=== PATIENT | male | born 1970 | race African-American/Black ===

== ENCOUNTER 2016-08-19 21:17 | Emergency (ER) | payer BC ==
[~2016-08-19] VITALS: Ht 172.7 cm; Wt 93.0 kg
--- OUTSIDE RECORDS SUMMARY | 2016-08-19 21:22 | XMS REPORT | Continuity of Care Document ---
Author Author [facility] Organization [facility] Address Unknown Phone Unavailable Allergies Medications Problems Procedures Results Encounters ACCT No. Visit Date/Time Discharge Status Pt. Type Provider Facility Loc./Unit Complaint [id number] 11/29/2013 09:11:00 2013 23:59:59 CLS Outpatient [id number] 08/19/2016 21:18:00 ACT Emergency ELOISA ALCOCER, JORGE ALBERTO [facility] ER NAUSEA
[2016-08-19] MEDS ORDERED: NS IV 1000 ML 1,000 ML IV ONE ×2 (21:41→22:00)
[2016-08-19] MEDS ORDERED: ONDANSETRON 4 MG/2 ML (SDV) Z0FRAN IVP ONE (21:45)
[2016-08-19 22:00] LABS: BASOPHILS % (AUTO) 0 % (0-10); EOSINOPHILS % (AUTO) 0 % (0-10); LYMPHOCYTES # (AUTO) 1.6 X 10^3 (1.0-4.0); LYMPHOCYTES % (AUTO) 26 % (12-44); MEAN CORPUSCULAR HEMOGLOBIN 28 PG (25-34); MEAN CORPUSCULAR HGB CONC 35 G/DL (32-36); MEAN CORPUSCULAR VOLUME 81 FL (80-99); MEAN PLATELET VOLUME 9.9 FL (7.4-10.4); MONOCYTES # (AUTO) 0.2 X 10^3 (0.0-1.0); MONOCYTES % (AUTO) 4 % (0-12); NEUTROPHILS # (AUTO) 4.4 X 10^3 (1.8-7.8); NEUTROPHILS % (AUTO) 70 % (42-75); PLATELET COUNT 251 10^3/uL (130-400); RED BLOOD COUNT 5.56 10^6/uL (4.35-5.85); RED CELL DISTRIBUTION WIDTH 12.6 % (10.0-14.5); WHITE BLOOD COUNT 6.3 10^3/uL (4.3-11.0)
--- NOTE | 2016-08-19 22:06 | ED GI ---
General Chief Complaint: Abdominal/GI Problems Stated Complaint: NAUSEA Nursing Triage Note: c/o vomiting, denies abdomen pain and diarrhea Sepsis Screen: No Definite Risk History of Present Illness Time Seen By Provider: 21:40 Initial Comments patient presents with vomiting since 1300, 6 episodes. Most recent 15 minutes ago. Ate lunch at 1100 and nausea began shortly after that. He has only had sips of water since the vomiting started. he denies abdominal pain. late last week he had some fevers and cough but that has improved Timing/Duration: 4-6 Hours Severity/Quality: Moderate Radiation: No Radiation Activities at Onset: None Modifying Factors: Improves With Lying down, Improves With Resting Associated Symptoms: Denies Symptoms Allergies and Home Medications Allergies Coded Allergies: No Known Drug Allergies (Unverified , 08/19/16) Review of Systems Constitutional: no symptoms reported see HPI EENTM: No Symptoms Reported See HPI Respiratory: No Symptoms Reported See HPI Cardiovascular: No Symptoms Reported Gastrointestinal: See HPIDenies Abdominal Pain, Denies Blood Streaked Stools, Denies Constipated, Denies Diarrhea, Denies Difficulty Swallowing, NauseaDenies Poor Appetite, Vomiting Genitourinary: No Symptoms Reported See HPI Musculoskeletal: no symptoms reported see HPI Skin: no symptoms reported see HPI Psychiatric/Neurological: No Symptoms Reported See HPI Endocrine: No Symptoms Reported See HPI Hematologic/Lymphatic: No Symptoms Reported See HPI All Other Systems Reviewed Negative Unless Noted: Yes Past [id number]-Jqiktc Hx Patient Social History Alcohol Use: Denies Use Recreational Drug Use: No Smoking Status: Never a Smoker Recent Foreign Travel: No Contact w/Someone Who Travel: No Recent Infectious Disease Expo: No Recent Hopitalizations: No Surgeries HX Surgeries: No Respiratory Hx Respiratory Disorders: No Cardiovascular Hx Cardiac Disorders: No Neurological Hx Neurological Disorders: No Reproductive System Hx Reproductive Disorders: No Sexually Transmitted Disease: No Genitourinary Hx Genitourinary Disorders: No Gastrointestinal Hx Gastrointestinal Disorders: No Musculoskeletal Hx Musculoskeletal Disorders: No HEENT HX ENT Disorders: No Cancer Hx Cancer: No Psychosocial Hx Psychiatric Problems: No Integumentary HX Skin/Integumentary Disorder: No Blood Transfusions Hx Blood Disorders: No Reviewed Nursing Assessment Reviewed/Agree w Nursing PMH: Yes Physical Exam Vital Signs VS - Last 72 Hours, by Label 08/19/16 08/19/16 21:39 23:40 Temp 97.5 98.8 Pulse 74 61 Resp 16 18 B/P 100/59 Pulse Ox 97 97 Capillary Refill : Less Than 3 Seconds General Appearance: WD/WN no apparent distress HEENT: PERRL/EOMI normal ENT inspection TMs normal pharynx normal other (oral mucosa pink and moist) Neck: non-tender full range of motion supple normal inspection Respiratory: chest non-tender lungs clear Cardiovascular: normal peripheral pulses regular rate, rhythm no murmur Gastrointestinal: normal bowel sounds non tender softNo guarding, No rebound, No tenderness, No hernia, No mass, No hepatomegaly, No spleenomegaly, other ( negative Rayo or iliopsoas sign) Extremities: normal range of motion non-tender normal inspection no pedal edema no calf tenderness normal capillary refill Back: normal inspection no CVA tenderness no vertebral tenderness Neurologic/Psychiatric: no motor/sensory deficits alert normal mood/affect oriented x 3 Skin: normal color warm/dry Lymphatic: no adenopathy Focused Exam Lactic Acid Level Laboratory Tests Test 08/19/16 21:50 Alanine Aminotransferase (ALT/SGPT) 51U/L (0-55) Albumin 4.0G/DL (3.2-4.5) Alkaline Phosphatase 88U/L (40-136) Amylase Level 76U/L (25-125) Anion Gap 14MMOL/L (5-14) Aspartate Amino Transf (AST/SGOT) 46U/L (5-34) H BUN/Creatinine Ratio 10 Blood Urea Nitrogen 11MG/DL (7-18) Calcium Level 9.4MG/DL (8.5-10.1) Carbon Dioxide Level 21MMOL/L (21-32) Chloride Level 106MMOL/L (98-107) Creatinine 1.12MG/DL (0.60-1.30) Estimat Glomerular Filtration Rate > 60 Glucose Level 118MG/DL (70-105) H Lipase 19U/L (8-78) Magnesium Level 2.1MG/DL (1.8-2.4) Potassium Level 4.2MMOL/L (3.6-5.0) Sodium Level 141MMOL/L (135-145) Total Bilirubin 1.0MG/DL (0.1-1.0) Total Protein 7.6G/DL (6.4-8.2) Progress/Results/Core Measures Results/Orders Lab Results Laboratory Tests Test 08/19/16 21:50 08/19/16 23:05 Range/Units Alanine Aminotransferase (ALT/SGPT) 51 0-55 U/L Albumin 4.0 3.2-4.5 G/DL Alkaline Phosphatase 88 40-136 U/L Amylase Level 76 25-125 U/L Anion Gap 14 5-14 MMOL/L Aspartate Amino Transf (AST/SGOT) 46 H 5-34 U/L BUN/Creatinine Ratio 10 Basophils # (Auto) 0.0 0.0-0.1 10^3/uL Basophils (%) (Auto) 0 0-10 % Blood Urea Nitrogen 11 7-18 MG/DL Calcium Level 9.4 8.5-10.1 MG/DL Carbon Dioxide Level 21 21-32 MMOL/L Chloride Level 106 98-107 MMOL/L Creatinine 1.12 0.60-1.30 MG/DL Eosinophils # (Auto) 0.0 0.0-0.3 10^3/uL Eosinophils (%) (Auto) 0 0-10 % Estimat Glomerular Filtration Rate > 60 Glucose Level 118 H 70-105 MG/DL Hematocrit 45 40-54 % Hemoglobin 15.7 13.3-17.7 G/DL Lipase 19 8-78 U/L Lymphocytes # (Auto) 1.6 1.0-4.0 X 10^3 Lymphocytes (%) (Auto) 26 12-44 % Magnesium Level 2.1 1.8-2.4 MG/DL Mean Corpuscular Hemoglobin 28 25-34 PG Mean Corpuscular Hemoglobin Concent 35 32-36 G/DL Mean Corpuscular Volume 81 80-99 FL Mean Platelet Volume 9.9 7.4-10.4 FL Monocytes # (Auto) 0.2 0.0-1.0 X 10^3 Monocytes (%) (Auto) 4 0-12 % Neutrophils # (Auto) 4.4 1.8-7.8 X 10^3 Neutrophils (%) (Auto) 70 42-75 % Platelet Count 251 130-400 10^3/uL Potassium Level 4.2 3.6-5.0 MMOL/L Red Blood Count 5.56 4.35-5.85 10^6/uL Red Cell Distribution Width 12.6 10.0-14.5 % Sodium Level 141 135-145 MMOL/L Total Bilirubin 1.0 0.1-1.0 MG/DL Total Protein 7.6 6.4-8.2 G/DL White Blood Count 6.3 4.3-11.0 10^3/uL Urine Bacteria NONE /HPF Urine Bilirubin NEGATIVE NEGATIVE Urine Casts NONE /LPF Urine Clarity CLEAR Urine Color YELLOW Urine Crystals NONE /LPF Urine Culture Indicated NO Urine Glucose (UA) NEGATIVE NEGATIVE Urine Ketones NEGATIVE NEGATIVE Urine Leukocyte Esterase NEGATIVE NEGATIVE Urine Mucus NEGATIVE /LPF Urine Nitrite NEGATIVE NEGATIVE Urine Protein 1+ H NEGATIVE Urine RBC NONE /HPF Urine RBC (Auto) NEGATIVE NEGATIVE Urine Specific [place] 1.010 L 1.016-1.022 Urine Squamous Epithelial Cells RARE /HPF Urine Urobilinogen 1 NORMAL MG/DL Urine WBC NONE /HPF Urine pH 8 5-9 My Orders Orders-TERESA ANDERSON Saline Lock/Iv-Start (08/19/16 22:00) Ns Iv 1000 Ml (Sodium Chloride 0.9%) (08/19/16 22:00) Rx-Ondansetron Po (Rx-Zofran Po) (08/19/16 23:30) Medications Given in ED Vital Signs/I&O Vital Sign - Last 12Hours 08/19/16 08/19/16 21:39 23:40 Temp 97.5 98.8 Pulse 74 61 Resp 16 18 B/P 100/59 Pulse Ox 97 97 Blood Pressure Mean: 73 Progress Note : Time: 21:40 Progress Note initial evaluation completed, patient unsure of his normal blood pressure but is currently in the 100/50s will give 2 L of IV fluids and Zofran 4 mg IV. Labs to follow. 2230 patient reports to be feeling much better, denies nausea or vomiting. CBC and CMP essentially normal. B/P remains 100/50s. 2315 patient reports he continues to feel improved, blood pressure is 126/66. No nausea or vomiting taking ice chips. 2 L of normal saline had infused. UA normal. Departure Impression Impression: Primary Impression: Nausea and vomiting Qualified Code: R11.14 - Bilious vomiting Disposition: 01 HOME, SELF-CARE Condition: Improved Departure-Patient Inst. Decision time for Depature: 23:00 Referrals: YAZMIN DEWEY DO (PCP) Primary Care Physician Patient Instructions: Nausea and Vomiting, Adult (DC) Add. Discharge Instructions: All discharge instructions reviewed with patient and/or family. Voiced understanding. Small servings of clear liquids for 6 hours then progress to bland food as tolerated. Use Zofran for nausea/vomiting. return to emergency room if continued nausea and vomiting, worsening symptoms, or new concerns. TERESA ANDERSON Aug 19, 2016 22:06 Intake Total 2000 ml Balance 2000 ml Blood Pressure Mean: 73 Progress Note : Time: 21:40 Progress Note initial evaluation completed, patient unsure of his normal blood pressure but is currently in the 100/50s will give 2 L of IV fluids and Zofran 4 mg IV. Labs to follow. 2230 patient reports to be feeling much better, denies nausea or vomiting. CBC and CMP essentially normal. B/P remains 100/50s. 2315 patient reports he continues to feel improved, blood pressure is 126/66. No nausea or vomiting taking ice chips. 2 L of normal saline had infused. UA normal. Departure Impression Impression: Primary Impression: Nausea and vomiting Qualified Code: R11.14 - Bilious vomiting Disposition: HOME, SELF-CARE Condition: Improved Departure-Patient Inst. Decision time for Depature: 23:00 Referrals: YAZMIN DEWEY DO (PCP) Primary Care Physician Patient Instructions: Nausea and Vomiting, Adult (DC) Add. Discharge Instructions: All discharge instructions reviewed with patient and/or family. Voiced understanding. Small servings of clear liquids for 6 hours then progress to bland food as tolerated. Use Zofran for nausea/vomiting. return to emergency room if continued nausea and vomiting, worsening symptoms, or new concerns. TERESA ANDERSON Aug 19, 2016 22:06
[2016-08-19 22:19] LABS: ALANINE AMINOTRANSFERASE 51 U/L (0-55); AMYLASE 76 U/L (25-125); ANION GAP 14 MMOL/L (5-14); BLOOD UREA NITROGEN 11 MG/DL (7-18); BUN/CREATININE RATIO 10; CALCIUM 9.4 MG/DL (8.5-10.1); CARBON DIOXIDE 21 MMOL/L (21-32); CHLORIDE 106 MMOL/L (98-107); CREATININE SERUM 1.12 MG/DL (0.60-1.30); GFR ESTIMATED > 60; GLUCOSE 118 MG/DL (70-105); LIPASE 19 U/L (8-78); MAGNESIUM 2.1 MG/DL (1.8-2.4); POTASSIUM 4.2 MMOL/L (3.6-5.0); SODIUM 141 MMOL/L (135-145); TOTAL PROTEIN 7.6 G/DL (6.4-8.2)
[2016-08-19 22:31] LABS: ASPARTATE AMINO TRANSFERASE 46 U/L (5-34)
[2016-08-19 23:11] LABS: BILIRUBIN,URINE NEGATIVE (NEGATIVE); KETONES,URINE NEGATIVE (NEGATIVE); LEUKOCYTE ESTERASE ,URINE NEGATIVE (NEGATIVE); NITRITE,URINE NEGATIVE (NEGATIVE); PH,URINE 8 (5-9); PROTEIN,URINE 1+ (NEGATIVE); UROBILINOGEN,URINE 1 MG/DL (NORMAL)
[2016-08-19 23:17] LABS: SQUAMOUS EPITHELIAL CELL,UR RARE /HPF
[2016-08-19] MEDS ORDERED: RX-ONDANSETRON 4 MG ODT (ZOFRAN) PPK #4 PO ONE (23:30)
[2016-08-19 23:40] VITALS: BP 121/52
== END 2016-08-19 23:40 | disposition home or self-care (01) ==
LOC: EDUNIT# 21:17 → ER 21:18
DX: R11.2 Nausea with vomiting, unspecified (principal)
CPT/HCPCS: 36415; 80053; 81000; 82150; 83690; 83735; 85025; 96361; 96374